=== PATIENT | male | born 1970 | race Caucasian/White ===

== ENCOUNTER 2025-06-23 13:07 | Emergency (ER) | payer SELFPAY ==
[2025-06-23 13:11] VITALS: BP 169/109
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
[2025-06-23 15:18] VITALS: BMI 36.2
[2025-06-23 15:39] VITALS: BP 164/78
[2025-06-23] MEDS: TYLENOL 1000 MG PO (16:20)
[2025-06-23 20:07] VITALS: BP 128/70
== END 2025-06-23 20:25 | disposition home or self-care (01) ==
LOC: EMR 13:07
PROVIDERS: EMERGENCY PHYSICIAN Emergency Medicine
DX: S16.1XXA Strain of muscle, fascia and tendon at neck level, initial encounter (principal); V43.52XA Car driver injured in collision with other type car in traffic accident, initial encounter; Y92.410 Unspecified street and highway as the place of occurrence of the external cause; E11.9 Type 2 diabetes mellitus without complications; I10 Essential (primary) hypertension; G93.89 Other specified disorders of brain
CPT/HCPCS: 99284; 70450; 72125